=== PATIENT | female | born 1995 | race Caucasian/White ===

== ENCOUNTER 2019-09-29 15:57 | Inpatient (IN) | payer BC ==
[2019-09-29 16:30] LABS: #Lymphocytes 1.9 thou/uL (1.20-3.40); #Monocytes 0.6 thou/uL (0.11-0.59); #Neutrophils 5.4 thou/uL (1.40-6.50); %Basophils 0.3 % (0.0-1.0); %Eosinophils 0.6 % (0.0-10.0); %Lymphocytes 23.6 % (21.0-51.0); %Monocytes 6.9 % (0.0-10.0); %Neutrophils 68.6 % (42.0-75.0); Hemoglobin 13.5 g/dL (12.0-16.0); Mean Corpuscular HGB CONC 35.4 g/dL (32.0-36.0); Mean Corpuscular Hemoglobin 33.1 pg (27.0-31.0); Mean Corpuscular Volume 93.5 fL (78.0-98.0); Mean Platelet Volume 6.8 fL (7.4-10.4); Platelet Count 284 thou/uL (130-400); RBC Distribution Width 10.8 % (11.5-14.5); Red Blood Cell (RBC) Count 4.09 mill/uL (4.20-5.40); White Blood Cell (WBC) Count 7.9 thou/uL (4.8-10.8)
[2019-09-29 16:50] LABS: ALT (SGPT) 9 U/L (8-55); AST (SGOT) 12 U/L (5-34); Albumin 4.4 g/dL (3.5-5.0); Alkaline Phosphatase 42 U/L (40-110); Anion Gap 15 mmol/L (10-20); BUN (Urea Nitrogen) 10 mg/dL (7.0-18.7); Bilirubin, Total 0.6 mg/dL (0.2-1.2); Calc. Creatinine Clearance 0 mL/min (70-130); Calcium 9.6 mg/dL (7.8-10.44); Carbon Dioxide 20 mmol/L (22-29); Chloride 105 mmol/L (98-107); Estimated GFR-MDRD Greater than 90; Glucose 77 mg/dL (70-105); Potassium 3.6 mmol/L (3.5-5.1); Protein, Total 7.4 g/dL (6.0-8.3); Sodium 136 mmol/L (136-145)
[2019-09-29] MEDS ORDERED: Acetaminophen 325 MG TAB PO PRN (18:03)
[2019-09-29] MEDS ORDERED: Ondansetron ODT 4 MG TAB PO PRN (18:03)
[2019-09-29] MEDS ORDERED: Ondansetron PF 4 MG/2 ML Vial IVP PRN (18:03)
[2019-09-29] MEDS ORDERED: Doxylamine 25 MG TAB PO SCH (21:00)
[2019-09-29] MEDS: Sodium Chloride 0.9% 1,000 ML IV SCH (21:08)
[2019-09-29] MEDS ORDERED: Promethazine HCl 25 MG/ML VIAL IM PRN (22:11)
[2019-09-29] MEDS: pyridOXINE 50 MG (B6) TAB PO SCH (22:33)
--- NOTE | 2019-09-30 01:01 | HP ---
CHIEF COMPLAINT: Nausea and vomiting. HISTORY OF PRESENT ILLNESS: This is a 24-year-old G1 at 9 weeks' gestation who presents to the emergency department with inability to tolerate p.o. She has been experiencing nausea and vomiting during her . She was given promethazine in the past, which helped some but makes her very sleepy. She was seen in the emergency department two days ago and given Reglan, but felt that this did not improve her symptoms at all. She returned today, unable to tolerate p.o. at all. She denies any vaginal bleeding, significant abdominal pain, or other concerns. REVIEW OF SYSTEMS: Negative for head, eyes, ears, nose, throat; cardiovascular; respiratory; GI; ; neuropsych; musculoskeletal; skin; or constitutional symptoms other than mentioned above. PAST MEDICAL HISTORY: SVT. PAST SURGICAL HISTORY: 1. Cardiac ablation. 2. ACL repair. MEDICATIONS: 1. Reglan, not taking. 2. vitamin. ALLERGIES: NO KNOWN DRUG ALLERGIES. SOCIAL HISTORY: Negative for tobacco, alcohol, or drug abuse. FAMILY HISTORY: Noncontributory. PHYSICAL EXAMINATION: VITAL SIGNS: Temperature 98.7, blood pressure 139/60, pulse 79, respiratory rate 18, and O2 saturation 98% on room air. GENERAL: Awake and alert, in no acute distress. CHEST: Nonlabored. ABDOMEN: Soft, nontender to palpation. No masses, rebound, or guarding. PELVIC: Deferred. LABORATORY: WBC 7.9, hemoglobin 13.5, hematocrit 38.2, and platelets 284,000. Chemistry unremarkable. ASSESSMENT AND PLAN: A 24-year-old G1 at nine weeks gestation with nausea, vomiting during and not able to tolerate p.o. We will admit her for IV fluids and start pyridoxine and doxylamine scheduled. Promethazine will be ordered as p.r.n. for breakthrough nausea, vomiting. She will start a clear liquid diet and advance as tolerated. She is a patient of Dr. Watkins who will assume care. Job ID: [id number]
[2019-09-30] MEDS: Sodium Chloride 0.9% 1,000 ML IV SCH ×3 (03:25→16:44)
[2019-09-30] MEDS: pyridOXINE 50 MG (B6) TAB PO SCH ×2 (09:06→21:33)
[2019-09-30] MEDS ORDERED: Ondansetron ORAL SOLN. 4 MG/5 ML UDCUP PO PRN (10:04)
[2019-09-30] MEDS ORDERED: Ondansetron ODT 4 MG TAB PO PRN (10:32)
[2019-09-30] MEDS: Metoclopramide HCl 10 MG TAB PO SCH ×3 (12:10→21:33)
[2019-09-30 14:41] VITALS: BMI 20.6
[2019-09-30] MEDS: Doxylamine 25 MG TAB PO SCH (21:33)
[2019-10-01] MEDS: Sodium Chloride 0.9% 1,000 ML IV SCH ×3 (01:56→21:38)
[2019-10-01 02:10] LABS: Bilirubin Negative (Negative); Blood, Urine 2+ (Negative); Clarity Clear (Clear); Glucose, Urine (Dipstick) Normal (Negative); Leukocyte Negative Leu/uL (Negative); Nitrite Negative (Negative); Protein, Urine (Dipstick) Negative (Neg-Trace); Urobilinogen Normal mg/dL (Less than 2)
[2019-10-01] MEDS: pyridOXINE 50 MG (B6) TAB PO SCH ×2 (08:11→21:39)
[2019-10-01] MEDS: Metoclopramide HCl 10 MG TAB PO SCH ×4 (08:11→21:38)
[2019-10-01] MEDS: Doxylamine 25 MG TAB PO SCH ×2 (08:11→21:39)
[2019-10-02] MEDS: Sodium Chloride 0.9% 1,000 ML IV SCH ×2 (04:09→13:46)
[2019-10-02] MEDS: Metoclopramide HCl 10 MG TAB PO SCH ×2 (07:52→14:14)
[2019-10-02] MEDS: pyridOXINE 50 MG (B6) TAB PO SCH (07:52)
[2019-10-02] MEDS: Doxylamine 25 MG TAB PO SCH (07:52)
[2019-10-02 11:31] VITALS: BP 94/54; TEMP 98.6
--- NOTE | 2019-10-02 15:27 | PDOC.EVN ---
Event Note - Event Note Event Note: Today, patient is improved, with no vomiting. She tolerated Soup. Last single episode of vomiting was yesterday. She desires to go home. Review of Systems: Gen: no fever, chills, or sweats Neuro: no numbness/tingling, no weakness, denies headache Eyes: no visual changes ENT: no hearing changes, no sore throat, no runny nose Resp: no cough, no SOB, no wheezing Card: denies chest pain, no palpitations GI: no one episode of vomiting yesterday, none today, no abdominal pain : no vaginal discharge or itching, no dysuria, no hematuria MSK: no issues noted Heme: no easy bruising/bleeding Skin: no rash, no erythema Physical Exam: General: NAD, alert and oriented x3 HEENT: PERRLA, EOMI, normal sclera, oropharynx without erythema or exudate Neck: Supple. Full ROM Breasts: Deferred Heart/Cardiovascular System: RRR, Cap refill < 3 seconds, no rub, no murmur Lungs/Respiratory System: clear to auscultation bilaterally Abdomen/Gastro-Intestinal System: no abdominal tenderness, normal bowel sounds Pelvic Exam: Deferred Extremities: Warm extremities. No cyanosis or edema. Neuro: No gross deficits appreciated. CN 2-12 grossly intact Psychiatry: Awake, Alert and cooperative with exam Skin/ Integumentary: No lesions, rashes, or ulcers Musculoskeletal: Full ROM Assessment: 1. Hyperemesis Gravidarum at approx 8-9 weeks gestation - improved with IV hydration/anti-emetics as inpatient Plan: 1. DC home with dehydration precautions, 10 mopre days of Reglan, Promethazine, Bonjesta. Zofran 4mg ODT called in - but FDA precautions reviewed about unknown severity of potential risks to fetus. I advised using Zofran as a last resort for intracable vomiting.
== END 2019-10-02 15:25 | disposition home or self-care (01) | DRG 833 ==
LOC: ERS 15:57 → OBSVTOIN 20:18 → 3SE 20:18
PROVIDERS: ADMIT Obstetrics & Gynecology; ATTEND Obstetrics & Gynecology
DX: O21.0 Mild hyperemesis gravidarum (principal); Z3A.09 9 weeks gestation of pregnancy
CPT/HCPCS: 36415; 80048; 80053; 81003; 81015; 84702; 85025; 86900; 86901; 87086; 96360; 96361; 96365; 96366; J2765; Q0162